=== PATIENT | female | born 1980 | race Caucasian/White ===

== ENCOUNTER 2020-02-22 09:49 | Outpatient (RCR) | payer BC, SELFPAY ==
--- NOTE | 2020-02-22 13:35 | PTOPEVAL ---
Thank you for referring Xochitl Drummond to [facility].? The patient is scheduled to be seen for therapy? ____x/week for ___ weeks. Please review, sign, date and return this plan of care HARDY. I agree with and certify that the following plan of care is medically necessary. Referring Physician Date Admitting Provider: Attending Provider: PHYSICIAN NOT ON STAFF Referring Provider: *PT Outpatient Evaluation Start: 02/22/20 10:00 Freq: Status: Active Protocol: Document 02/22/20 10:00 [facility] (Rec: 02/22/20 10:53 [facility] [id number]) Therapy Assessment Status Assessment Status Assessment Status Evaluation Evaluation Information Problem Diagnosis R hip s/p labral repair Onset 01/30 Subjective Information patient underwent a R hip Query Text:As Reported By Patient/ labral repair 3 weeks ago. she Family reports this is the 2nd labral repair on this hip. she reports no specific injury, but wear and tear from her job and working out. she reports she is to wear her brace except while sleeping. she reports she was on crutches until about 2 days prior. she reports she is numb across the top of the R LE to the knee. Prior Level of Function Comments Additional Prior Level of Function prior to surgery, patient Comments reports she was having pain for about 1 month. she reports she has not worked out since her first injection to the hip back in march. she reports she was walking, but has cut out any running or lifting. she reports she was working up until surgery. she reports she is off from work atleast until follow up with her MD on march 16. Pain Assessment Timing of Pain Assessment Timing of Pain Assessment Assessment Pain Scale Pain Scale Used Numeric (1 - 10) Self Report Pain Assessment Right Hip(s) Reported Pain Level 7 Lowest Pain Intensity 4 Greatest Pain Intensity 10 Pain Score Pain Score 7: Self Report Lower Extremity Range of Motion Hip Range of Motion Right Hip Flexion Range of Motion - Active 75 Hip Flexion Range of Motion - Passive 80 Hip Medial Rotation - Active 15 Hip Lateral Rotation - Active
--- NOTE | 2020-03-13 13:21 | PCPTNOTE ---
03/13/20-pt called and cancelled today's appointment. No reason stated.
--- NOTE | 2020-05-16 13:16 | PCPTNOTE ---
05/16/20 - patient has not been to therapy in over 2 months. as of this date, she has been DC'd and all progress towards goals will be taken from her most recent evaluation/note.
== END 2020-03-09 14:45 | disposition home or self-care (01) ==
LOC: CHSPT 09:49
DX: Z47.89 Encounter for other orthopedic aftercare (principal)
CPT/HCPCS: 97110; 97161

== ENCOUNTER 2020-06-21 10:54 | Outpatient (RCR) | payer BC, SELFPAY ==
--- NOTE | 2020-06-22 06:53 | PTOPEVAL ---
Thank you for referring Xochitl Drummond to [facility].? The patient is scheduled to be seen for therapy? __2__x/week for 12 visits. Please review, sign, date and return this plan of care HARDY. I agree with and certify that the following plan of care is medically necessary. Referring Physician Date Admitting Provider: Attending Provider: YARI LOZADA Referring Provider: *PT Outpatient Evaluation Start: 06/21/20 11:03 Freq: Status: Active Protocol: Document 06/21/20 11:03 [facility] (Rec: 06/21/20 11:53 [facility] [id number]) Therapy Assessment Status Assessment Status Assessment Status Evaluation Evaluation Information Problem Diagnosis s/p right hip replacement Onset 05/31/20 Subjective Information Pt. reports she underwent hip Query Text:As Reported By Patient/ replacement on 05/31/20. She Family reports that she noticed immediate pain relief. She is taking percocet but states that she is weaning down. She reports that she is still using a walker. She states that she just returned to driving. She states that her goal is to return to walking normal. Prior Level of Function Comments Additional Prior Level of Function Pt. has been less active in Comments recent months due to hip pain. Enjoys walking and wants to return to walking for exercise . Pain Assessment Pain Scale Pain Scale Used Numeric (1 - 10) Self Report Pain Assessment Right Hip(s) Reported Pain Level 6 Pain Description Tightness Pain Frequency Continuous Lowest Pain Intensity 6 Greatest Pain Intensity 6 Pain Aggravating Factors Exercise/Activity,Sitting, Walking Pain Score Pain Score 6: Self Report Interventions Used Interventions Used By Clinicians Exercise Lower Extremity Range of Motion General Lower Extremity Range of Motion Gross Lower Extremity Range of Motion Pt. is limited to 0-80 degrees Comments right knee AROM pre Rx. She concludes Rx with 0-125 degrees right knee AROM, compared to 0-140 degrees on the left. Pt. limited to 90 degrees of hip flexion due to precautions Lower Extremity Muscle Strength Testing General Lower Extremity
== END 2020-07-12 10:14 | disposition home or self-care (01) ==
LOC: CHSPT 10:54
DX: M16.11 Unilateral primary osteoarthritis, right hip (principal)
CPT/HCPCS: 97110; 97116; 97161; 97530

== ENCOUNTER 2021-01-20 08:45 | Emergency (ER) | payer BC, SELFPAY ==
--- NOTE | ~2021-01-20 | XR_ITS ---
EXAMINATION: XR foot RT min 3V DATE: 01/20/2021 09:07 INDICATION: Right foot pain, initial encounter TECHNIQUE: Dorsoplantar, lateral, and 2 oblique views of the right foot were obtained. COMPARISON: None. FINDINGS: There is an acute, traumatic, closed, oblique shaft fracture of the fifth proximal phalanx. There is valgus angulation at the fracture site. The remaining osseous structures are unremarkable. The joint spaces are normal. IMPRESSION: 1. Oblique shaft fracture of the fifth proximal phalanx with valgus angulation. Reviewed, dictated and finalized at location A.
[2021-01-20 08:50] VITALS: BP 133/96; PULSE 74; RESP 18; TEMP 36.6; O2SAT 95
--- NOTE | 2021-01-20 08:55 | ED.LOWEXIN ---
HPI - Extremity Injury (Lower) General Chief Complaint: Extremity Injury, Lower Stated Complaint: possible break on R pinky toe Time Seen by Provider: 01/20/21 08:55 Source: patient Mode of arrival: wheelchair Limitations: no limitations History of Present Illness HPI Narrative: 40-year-old woman comes in today complaining of a right pinky toe pain after she struck her foot on a mattress box springs this morning. She denies any other injury. complaint: foot injury Onset (ago): hour(s) Type of Injury: blunt Place: home Severity: moderate Relieving factors: rest Exacerbating factors: weight bearing, movement and palpation Context: direct blow Associated symptoms: able to partially bear weight Other symptoms: none Related Data Home Medications Medication Instructions Recorded Confirmed No Home Medications 01/20/21 01/20/21 Allergies Allergy/AdvReac Type Severity Reaction Status Date / Time No Known Allergies Allergy Verified 01/20/21 09:05 Review of Systems Review of Systems: All systems reviewed & are unremarkable except as noted in HPI and below Neurologic: Denies numbness and Denies weakness [facility] Surgical History Surgical History (Updated 01/20/21 @ 08:59 by Parker Mcclelland MD) History of right hip replacement Exam Const: General: alert Orientation/consciousness: patient oriented x3 Other: Mild acute distress. Resp: Effort & Inspection: normal respiratory effort and not labored Auscultation: clear to auscultation bilaterally, no rales, no rhonchi and no wheezes Cardio: Rate: regular rate Rhythm: regular rhythm Heart sounds: no murmurs Skin: General skin exam: normal color, no jaundice and no pallor Rashes: no rashes Neuro: General: patient oriented x3, moves all extremities, no focal motor deficits and CN's II-XI intact bilaterally Speech: normal speech Gait exam (Neuro): Normal gait present Extrem: General: no clubbing, cyanosis or edema Other: Right pinky toe laterally angulated approximately 45?. Skin is intact. No tenderness over the metatarsals or remaining toes. Distal neurovascular exam is intact. Psych: Appearance: grossly normal and well kempt Mental Status: mental status grossly normal Affect: normal affect Attitude: cooperative Course Vital Signs Vital signs: Vital Signs Temperature 36.6 C 01/20/21 08:50 Pulse Rate 74 01/20/21 08:50 Respiratory Rate 18 01/20/21 08:50 Blood Pressure 133/96 H 01/20/21 08:50 Pulse Oximetry 95 01/20/21 08:50 Temperature 36.6 C 01/20/21 08:50 Pulse Rate 74 01/20/21 08:50 Respiratory Rate 18 01/20/21 08:50 Blood Pressure 133/96 H 01/20/21 08:50 Pulse Oximetry 95 01/20/21 08:50 Procedures Orthopedic Fracture Reduction Fracture #1: Fracture Reduction date: 01/20/21 Fracture Reduction time: 09:40 Time Out Performed: Yes Side: right Fracture Reduction Location: toe Analgesia: other (Digital block) Pre-Procedure Neuro Vascular Exam: normal Technique: direct manipulation Post-reduction neuro exam: intact Post-reduction vascular exam: intact Splint Applied: Yes Patient Tolerated Procedure: well Additional Comments: 1.5 cc of 1% plain lidocaine injected on the medial and lateral side of the distal 5th metatarsal. Discharge Plan Discharge Clinical Impression: Closed fracture of fifth toe of right foot Qualifiers: Encounter type: initial encounter Qualified Code(s): S92.501A - Displaced unspecified fracture of right lesser toe(s), initial encounter for closed fracture Patient Disposition: Home, Self-Care Condition: Stable Instructions: Toe Fracture (ED) Additional Instructions: Rest, ice, elevation and ibuprofen. Do not combine pain medication and alcohol or other sedating medications. If you have redness, swelling, or your toe turns blue and cold, return to the emergency department immediately. Prescrip
[2021-01-20] MEDS: KETOROLAC (*BKC) 60 MG/2 ML VIAL IM (09:27)
== END 2021-01-20 09:54 | disposition home or self-care (01) ==
PROVIDERS: Emergency Provider Emergency Medicine
DX: S92.501A Displaced unspecified fracture of right lesser toe(s), initial encounter for closed fracture (principal); W22.03XA Walked into furniture, initial encounter
CPT/HCPCS: 28660; 73630; 96372; 99283; 99285; J1885

== ENCOUNTER 2021-06-03 19:11 | Emergency (ER) | payer BC, SELFPAY ==
[2021-06-03 19:20] VITALS: BP 136/98; PULSE 86; RESP 18; TEMP 36.6; O2SAT 98
--- NOTE | 2021-06-03 19:26 | ED.WOUNDLAC ---
HPI - Wound/Laceration General Chief Complaint: Wound/Laceration Stated Complaint: cut finger on left side Time Seen by Provider: 06/03/21 19:26 Source: patient Mode of arrival: ambulatory Limitations: no limitations History of Present Illness HPI narrative: Previously well 41-year-old woman comes in today complaining of laceration of her left index finger that happened just prior to arrival. She states that she was using a new knife. She does not recall her last tetanus shot. Onset (ago): minute(s) Extremity Location: Left: hand ( Index finger) Place: home Context: accidental Associated symptoms: pain Treatments prior to arrival: bandage Related Data Home Medications Medication Instructions Recorded Confirmed gabapentin 800 mg PO BID 06/03/21 06/03/21 Allergies Allergy/AdvReac Type Severity Reaction Status Date / Time No Known Allergies Allergy Verified 01/20/21 09:05 Review of Systems Review of Systems: All systems reviewed & are unremarkable except as noted in HPI and below Musculoskeletal: Musculoskeletal: Denies arthralgias and Denies joint swelling Integumentary/Breasts: Skin/Breast: Reports as per HPI, Denies pruritus, Denies erythema and Denies rash Neurologic: Denies focal weakness and Denies numbness Hematologic/Lymphatic: Hematologic/Lymphatic: Denies easy bleeding and Denies easy bruising PMFSH Surgical History Surgical History History of right hip replacement Social History Social History (Updated 06/03/21 @ 19:52 by Parker Mcclelland MD) Smoking status: Current every day smoker Living arrangements: with family Exam Const: General: healthy appearing, no acute distress and alert Orientation/consciousness: patient oriented x3 Limitations: no limitations Skin: General skin exam: normal color, no jaundice and no pallor Rashes: no rashes Other: 1.2 cm flap laceration on the radial aspect left index finger. It is adjacent to but does not involve the nail bed or plate. Distal neurovascular exam is intact. Neuro: General: patient oriented x3, moves all extremities, no focal motor deficits and CN's II-XI intact bilaterally Speech: normal speech Gait exam (Neuro): Normal gait present Extrem: General: normal to inspection and no clubbing, cyanosis or edema Psych: Appearance: grossly normal and well kempt Mental Status: mental status grossly normal Affect: normal affect Attitude: cooperative Thought content: Yes Normal thought content present Course Vital Signs Vital signs: Vital Signs Temperature 36.6 C 06/03/21 19:20 Pulse Rate 86 06/03/21 19:20 Respiratory Rate 18 06/03/21 19:20 Blood Pressure 136/98 H 06/03/21 19:20 Pulse Oximetry 98 06/03/21 19:20 Temperature 36.2 C L 06/03/21 20:20 Pulse Rate 85 06/03/21 20:20 Respiratory Rate 20 06/03/21 20:20 Blood Pressure 130/86 06/03/21 20:20 Pulse Oximetry 99 06/03/21 20:20 Procedures Laceration Laceration 1: Date: 06/03/21 Time: 19:54 Site: hand Side (If applicable): left Size (cm): 1.2 Description: flap Depth: simple, single layer Local Anesthetic: lidocaine 1% Amount of anesthesia used (mL): 1.5 Pre-repair: wound explored and irrigated extensively ====== Skin Level ====== Skin layer closed with: nylon Size (cm): 5-0 Number of sutures: 4 Technique: simple, interrupted ====== Subcutaneous Layer ====== ====== Muscle Layer ====== ====== Tendon Layer ====== MDM - Wound/Laceration Differential Diagnosis Differential diagnosis: Likely laceration Discharge Plan Discharge Clinical Impression: Laceration of finger, index Qualifiers: Encounter type: initial encounter Damage to nail status: without damage Foreign body presence: without foreign body Laterality: left Qualified Code(s): S61.211A - Laceration without fo
[2021-06-03] MEDS: TETANUS,DIPHTHERIA,AC PERTUSSIS ADULT 0.5 ML (ADACEL) IM (19:42)
[2021-06-03] MEDS: LIDOCAINE HCL 1% LOCAL INJ 20 ML VIAL 10 ML INFILTRATE (19:44)
[2021-06-03 20:20] VITALS: BP 130/86; PULSE 85; RESP 20; TEMP 36.2; O2SAT 99
== END 2021-06-03 20:50 | disposition home or self-care (01) ==
PROVIDERS: Emergency Provider Emergency Medicine
DX: S61.211A Laceration without foreign body of left index finger without damage to nail, initial encounter (principal); W26.0XXA Contact with knife, initial encounter
CPT/HCPCS: 12001; 90471; 90715; 99282

== ENCOUNTER 2021-06-05 18:31 | Emergency (ER) | payer BC, SELFPAY ==
[2021-06-05 18:35] VITALS: BP 152/102; PULSE 98; RESP 18; TEMP 36.4; O2SAT 98
--- NOTE | 2021-06-05 19:08 | ED.WOUNDLAC ---
HPI - Wound/Laceration General Chief Complaint: Wound/Laceration Stated Complaint: finger stitched up friday-keeps oozingand bleeding Time Seen by Provider: 06/05/21 18:33 Source: patient and RN notes reviewed Mode of arrival: ambulatory Limitations: no limitations History of Present Illness Onset (ago): day(s) (2) Extremity Location: Right: hand Place: work Patient tetanus UTD: Yes Context: other (post right 3 rd finger laceration, sutured-----minimal oozing and pain.) Associated symptoms: none Treatments prior to arrival: bandage Related Data Home Medications Medication Instructions Recorded Confirmed gabapentin 800 mg PO BID 06/03/21 06/05/21 Allergies Allergy/AdvReac Type Severity Reaction Status Date / Time No Known Allergies Allergy Verified 01/20/21 09:05 Review of Systems Review of Systems: All systems reviewed & are unremarkable except as noted in HPI and below Constitutional: Constitutional: Reports as per HPI Eyes: Eyes: Reports as per HPI and Reports no additional eye complaints PMFSH Past Medical History Medical History Finger laceration Surgical History Surgical History History of right hip replacement Social History Social History Smoking status: Current every day smoker Exam Const: General: no acute distress and alert Orientation/consciousness: patient oriented x3 HENMT: Head: normal to inspection Ears: external ears normal and TM's normal bilaterally General nose exam: Normal external nose present and Normal nares present Mouth: Yes lip normal and Yes moist mucous membranes Teeth and gingiva: dentition normal Eyes: Conjunctivae: conjunctivae normal Pupils: Equal, round and reactive pupils present EOM: EOMs intact bilaterally Neck: Neck: normal visual inspection and no lymphadenopathy Chest: Chest palpation & inspection: normal inspection of the chest Resp: Effort & Inspection: normal respiratory effort Auscultation: clear to auscultation bilaterally Cardio: Rate: regular rate Rhythm: regular rhythm GI: GI Palp: Yes Soft to palpation and No Tenderness to palpation present (GI) Percussion: Yes normal to percussion Auscultation: normal bowel sounds Back/Spine/Pelvis: Back: no CVA tenderness Skin: General skin exam: normal color Rashes: no rashes Neuro: General: patient oriented x3 and moves all extremities Extrem: Other: right distal 3rd finger palmar lateral 1.2 cm sutured laceration. no acute redness, swelling or drainage seen. Psych: Appearance: grossly normal and well kempt Mental Status: mental status grossly normal Affect: normal affect Thought content: Yes Normal thought content present Course Course Emergency Course: Pt was stable in the ED. Reevaluation(s) Reevaluation #1: VSS. pt for home with dressing and antibiotics. Date: 06/05/21 Time: 19:13 Vital Signs Vital signs: Vital Signs Temperature 36.4 C 06/05/21 18:35 Pulse Rate 98 06/05/21 18:35 Respiratory Rate 18 06/05/21 18:35 Blood Pressure 152/102 H 06/05/21 18:35 Pulse Oximetry 98 06/05/21 18:35 Temperature 36.6 C 06/05/21 19:25 Pulse Rate 78 06/05/21 19:25 Respiratory Rate 18 06/05/21 19:25 Blood Pressure 144/88 H 06/05/21 19:25 Pulse Oximetry 100 06/05/21 19:25 MDM - Wound/Laceration Differential Diagnosis Differential diagnosis: Likely laceration Medical Records Attestation: I reviewed the patient's medical records. Critical Care Time Critical Care Time Critical Care Time: No Total Critical Care Time: 0 Discharge Plan Discharge Clinical Impression: Healing laceration Finger laceration Qualifiers: Encounter type: initial encounter Finger: middle finger Damage to nail status: without damage Foreign body presence: without foreign body Patient Disposition:
[2021-06-05 19:25] VITALS: BP 144/88; PULSE 78; RESP 18; TEMP 36.6; O2SAT 100
== END 2021-06-05 19:30 | disposition home or self-care (01) ==
PROVIDERS: Emergency Provider Emergency Medicine
DX: S61.212D Laceration without foreign body of right middle finger without damage to nail, subsequent encounter (principal)
CPT/HCPCS: 99283

== ENCOUNTER 2021-08-10 10:49 | Outpatient (RCR) | payer BC, SELFPAY ==
--- NOTE | 2021-08-10 13:45 | PTOPEVAL ---
Thank you for referring Xochitl Drummond to [facility].? The patient is scheduled to be seen for therapy? ____x/week for ___ weeks. Please review, sign, date and return this plan of care HARDY. I agree with and certify that the following plan of care is medically necessary. Referring Physician Date Admitting Provider: Attending Provider: YARI LOZADA Referring Provider: *PT Outpatient Evaluation Start: 08/10/21 11:12 Freq: Status: Active Protocol: Document 08/10/21 11:10 [facility] (Rec: 08/10/21 11:36 [facility] [id number]) Therapy Assessment Status Assessment Status Assessment Status Progress Outpatient Past Medical History Musculoskeletal History Hx Fractures Yes: right wrist Hx Joint Replacement Yes: right hip Evaluation Information Problem Diagnosis L hip labral repair, R psoas tendon lengthening Onset 08/08/21 Additional Evaluation Detail LEFS = 98% functionally declined Subjective Information patient reports she had a L Query Text:As Reported By Patient/ labral repair of the hip and R Family psoas tendon lengthening 2 days ago. she reports initial injury of the L hip is unknown . she has had R hip labral repair about 2 years ago, and then a R hip replacement. she reports she is sore this date. she reports she has been elevating and using ice at home. WBAT on the R LE and PWB /minimal WB on the L LE. patient ambulating with bilateral crutches. patient has a L hip brace open from 0- 90 degrees mobility. Prior Level of Function Comments Additional Prior Level of Function patient reports prior to Comments surgery she was having pain. 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 Pain Assessment Timing of Pain Assessment Timing of Pain Assessment Assessment Pain Scale Pain Scale Used Numeric (1 - 10) Self Report Pain Assessment Right Hip(s) Reported Pain Level 7 Left Hip(s) Reported Pain Level 9 Pain Score Pain Score 9,7: Self Report Interventions Used Interventions Used By Clinicians Elevation,Ice,Medication,Rest Lower Extremity Range of Motion General Lowe
--- NOTE | 2021-11-12 06:50 | PCPTNOTE ---
Ms. Drummond attended a total of 4 treatment sessions from 08/10/21 to 08/30/21. She has failed to return to the clinic and contacted the clinic recently stating she underwent another surgery. She will be discharged from this account and re-evaluated for her post surgical follow up.
== END 2021-08-30 23:59 | disposition home or self-care (01) ==
LOC: CHSPT 10:49
DX: S73.192D Other sprain of left hip, subsequent encounter (principal)
CPT/HCPCS: 97110; 97161; 97530